=== PATIENT | female | born 1995 | race Caucasian/White ===

== ENCOUNTER 2017-04-27 14:25 | Outpatient (CLI) | payer BC ==
[~2017-04-27] VITALS: Ht 167.6 cm; Wt 85.5 kg
[2017-04-27 14:41] VITALS: Ht 167.6 cm; Wt 85.5 kg
[2017-04-27] MEDS ORDERED: ESCI10TA PO (14:41)
[2017-04-27] MEDS ORDERED: IBUP-1542 PO (14:41)
[2017-04-27 14:42] VITALS: BP 117/64; PULSE 90; RESP 18
--- NOTE | 2017-04-27 16:25 | PN ---
Date/Time of Note Date/Time of Note DATE: 04/27/17 TIME: 16:01 Assessment/Plan Assessment/Plan Assessment/Plan [facility] Progress Note Date of Service: 04/27/2017 Today's Impression & Plan: Overall has remained stable and improved since surgery. One issue that is somewhat unusual after laparoscopic cholecystectomy is ongoing problems with watery diarrhea that started a week after the surgery for her. This does not seem to be stemming from the operation since most reported issues with bowel movements after this operation revolve around loose stools, only reported in 10- 15% of postoperative patients and usually temporary nature with most of them resolving within 2-3 months. I do not get a sense that there are other major issues including infection, bile leak, or other problems intra-abdominally. The wounds themselves appear to be healing well and no evidence of erythema, edema, discharge, or hernia. For this reason, I am kindly asking the patient's primary care physician to please investigate the potential causes for diarrhea and to assist with the management. I am still happy to see the patient and if there are any other surgical issues that arise, I would be happy to manage it. At this time, I am releasing the patient's care to the capable hands of her primary care physician's office. Explained to the patient and her aunt and answered all questions. Patient and family appear to understand and agreed with plans. With above assessment, I've recommended the following for today: 1. F/u with Dr. Fry 2. F/u with Dr. Ojeda for CBD stent removal and for workup for diarrhea 3. Follow-up with us as needed Thank you again for allowing us to participate in the care of this very pleasant lady and her wonderful family. If there are any questions, please feel free to call me at area code [phone]. Nature presenting problem: Moderate risk Complexity decision making: Complexity Please note: Spelling or grammatical errors in this note are likely due to EHR/ dictation systems and are not reflective of patient care quality. Occasional wrong-word or sound-alike substitutions may have occurred due to the inherent limitations of voice recognition software. Please read the chart carefully and recognize, using context, where the substitutions have occurred. The chart may also contain mistakes due to difficulties with voice recognition software. Also please note that the dictation timestamp of this note does not necessarily reflected time of the visit for this service. Updated clinical summary: Very pleasant and otherwise healthy 21-year-old young lady who presented to [facility] 03/22/17 with Cholelithiasis with bile duct dilatation; status post ERCP [facility] 03/26/2017 with stenting. S/p an otherwise uncomplicated laparoscopic cholecystectomy at [facility] on 03/26/17 with findings of cholelithiasis. Comorbidities: 1. Cholelithiasis with bile duct dilatation; status post ERCP [facility] 03/26/2017 with stenting. S/p an otherwise uncomplicated laparoscopic cholecystectomy at [facility] on 03/26/17 with findings of cholelithiasis. 2. Elevated BMI Subjective: No major events or complaints since discharge except for above-mentioned issues with diarrhea. No major abdominal pain. No need for pain medications. Still on Carafate and proton pump inhibitors. No N/V, SOB or CP. + bowel activity Objective: Vitals: reviewed; please also see EHR Physical Exam: Lungs: breathing comfortably without tachypnea; no audible wheezes, rales or rhonchi on gross exam Abd: Soft, minimally tender to palpation in the mid upper and right upper quadrants, and non-distended; no peritoneal signs or guarding. Incisions clean , dry, and intact without any evidence of erythema, edema, discharge, or hernia. Skin: Appears pink and feels warm to touch Neuro: Awake, alert and follows commands appropriately Exam/Review of Systems Vital Signs Vitals Vital Signs Date Time Temp Pulse Resp B/P Pulse Ox O2 Delivery O2 Flow Rate FiO2 04/27/17 14:42 98.4 90 18 117/64 98 Room Air ABUNDIO JACOBSEN M.D. Apr 27, 2017 16:25
== END 2017-04-27 16:55 | disposition home or self-care (01) ==
LOC: HPC 14:25
PROVIDERS: ATTEND Transplant Surgery
DX: R19.7 Diarrhea, unspecified (principal); K80.20 Calculus of gallbladder without cholecystitis without obstruction
CPT/HCPCS: G0463